=== PATIENT | male | born 1990 | race Two or more races ===

== ENCOUNTER 2025-10-30 03:51 | Emergency (ER) | payer MEDICAID, SELFPAY ==
[2025-10-30 03:51] VITALS: BP 124/83; PULSE 109; RESP 17; TEMP 36.7; O2SAT 95
[2025-10-30 03:52] VITALS: BMI 27.3
--- NOTE | 2025-10-30 04:26 | EDNOTE_ITS ---
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 Separately, patient has also had some non-healing painful wounds on lower ab area. Patient denies new meds, foods, and hygiene products. Limitations: no limitations Related Data Previous Rx's ?Medication ?Instructions ?Recorded acetaminophen 650 mg 650 mg PO Q8H PRN fever or p ain 03/15/22 tablet,extended release #30 tabs ibuprofen 600 mg tablet 600 mg PO Q8H PRN fever or p ain 03/15/22 #30 tabs doxycycline hyclate 100 mg tablet 100 mg PO BID 7 days #14 tabs 10/30/25 prednisone 50 mg tablet 50 mg PO QDAY 3 days #3 tabs 10/30/25 Allergies Allergy/AdvReac Type Severity Reaction Status Date / Time No Known Allergies Allergy Verified 10/30/25 03:51 Review of Systems Review of Systems Systems Reviewed: All systems reviewed, normal except as documented Integumentary/Breasts Skin/Breast: Reports as per HPI, Reports pruritus, Reports rash and Reports skin pain Past Medical History Past Medical History CARDIAC: Negative Congestive Heart Failure RESPIRATORY: Negative Chronic Obstructive Pulmonary Disease (COPD) GENITOURINARY: Negative Renal Disease ENDOCRINE: Negative Diabetes Mellitus Type 1 or Diabetes Mellitus Type 2 Social History SMOKING STATUS: Current every day smoker ED Exam General Limitations: Present no limitations General appearance: Present alert and in no apparent distress Head Head exam: Present other (urticarial rash face and neck) Neck Neck exam: Present normal inspection, full ROM and trachea midline Chest Chest inspection: Present normal inspection and symmetric chest wall rise Abdominal Exam Abdominal exam: Present other (mild red healed ulcerations on lower ab) Neurological Exam Neurological exam: Present alert and oriented X3 Psychiatric Psychiatric exam: Present normal affect and normal mood Skin Skin exam: Present warm, dry, intact and normal color Course Quality Measures none Orders Category Date Time Status DiphenhydrAMINE [Benadryl] Med 10/30/25 04:14 Discontinued 25 mg PO X1 ONE Doxycycline [Vibramycin] Med 10/30/25 04:14 Discontinued 100 mg PO X1 ONE Famotidine [Pepcid] Med 10/30/25 04:14 Discontinued 20 mg PO X1 ONE MethylPREDNISolone.* [SoluMEDROL Inj] Med 10/30/25 04:14 Discontinued 125 mg IM X1 ONE Vital Signs Vital signs: Vital Signs Temperature 98.0 F 10/30/25 03:51 Pulse Rate 109 H 10/30/25 03:51 Respiratory Rate 17 10/30/25 03:51 Blood Pressure 124/83 10/30/25 03:51 Pulse Oximetry (%) 95 10/30/25 03:51 Oxygen Delivery Method Room Air 10/30/25 03:51 O2 at 95% on RA and WNLs Allergic Reaction MDM Narrative MDM Narrative:: 35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 Separately, patient has also had some non-healing painful wounds on lower ab area. Patient denies new meds, foods, and hygiene products. Physical exam reveals urticarial rash on face and neck with some swelling. Normal WOB and speech. Separately, soome redness around healed ulcerations on lower ab. Patient is afebrile, calm, and alert. Patient eloped prior to observation period and DC. Patient data External records reviewed:: [facility] previous records Clinical information provided by:: patient Social determinants that could affect healthcare access:: substance use Patient has the following chronic illnesses:: meth How is presenting disease/condition affected by chronic disease/condition?: exacerbated by Evaluation data The following diagnostics were reviewed and interpreted by me:: other (specify) (none) Lab and/or radiology exams considered but not ordered:: not ordered Interpretation Summary: n/a Medications / Prescriptions Medications or Prescriptions considered but not ordered:: ordered Medication administrations:: Medication Administration History Discontinued Medications Diphenhydramine HCl (Diphenhydramine 25 Mg Capsule) 25 mg PO X1 ONE Stop: 10/30/25 04:15 Last Admin: 10/30/25 04:55 Dose: 25 mg Documented By: CVL Doxycycline Hyclate (Doxycycline 100 Mg Tablet) 100 mg PO X1 ONE Stop: 10/30/25 04:15 Last Admin: 10/30/25 04:55 Dose: 100 mg Documented By: CVL Famotidine (Famotidine 20 Mg Tablet) 20 mg PO X1 ONE Stop: 10/30/25 04:15 Last Admin: 10/30/25 04:55 Dose: 20 mg Documented By: CVL Methylprednisolone Sodium Succinate (Methylprednisolone Sod Succ 62.5 Mg/Ml 2ml Vial) 125 mg IM X1 ONE Stop: 10/30/25 04:15 Last Admin: 10/30/25 04:57 Dose: 125 mg Documented By: JACKL above Consultations Consultation(s) initiated? (list below): No Diagnosis Differential Diagnosis allergic reaction: anaphylaxis, allergic reaction, angioedema, contact dermatitis, adverse reaction to drug, viral enanthem and urticaria Most likely diagnosis given after review of the tests above:: allergic reaction and cellulitis Admission Indicated Admission indicated?: not indicated Admission Request Was there a request for admission?: No Disposition Plan Disposition Plan: other (specify) (eloped) Discharge Plan Plan Patient Disposition: Elopement Discharge Disposition comment: Stable Prescriptions/Referrals Prescriptions/Med Rec: New prednisone 50 mg tablet 50 mg PO QDAY 3 Days Qty: 3 0RF doxycycline hyclate 100 mg tablet 100 mg PO BID 7 Days Qty: 14 0RF No Action acetaminophen 650 mg tablet extended release 650 mg PO Q8H PRN (Reason: fever or pain) Qty: 30 0RF Rx Instructions: swallow whole; do not chew/break/dissolve/open ibuprofen 600 mg tablet 600 mg PO Q8H PRN (Reason: fever or pain) Qty: 30 0RF Problem List Clinical Impression: Cellulitis, Allergic reaction Patient/Caregiver Discharge Instructions Education Materials: ED Hives (Adult) Additional Instructions: Please follow-up with PCP within 24-48 hours and return immediately if symptoms worsen. Take OTC antihistamine as needed until symptoms resolve. Finish entire steroid course. Print Language: American Stand Alone Forms: Patient Portal Info Letter MAXIMILIANO/FELICIANO Supervising Physician MAXIMILIANO/FELICIANO Supervising Physician: Dr. Hernandes
[2025-10-30] MEDS: FAMOTIDINE 20 MG TABLET PO (04:55)
[2025-10-30] MEDS: DOXYCYCLINE 100 MG TABLET PO (04:55)
[2025-10-30] MEDS: MethylPREDNISolone SOD SUCC 62.5 MG/ML 2ML VIAL 125 MG IM (04:57)
== END 2025-10-30 05:15 | disposition left against medical advice (07) ==
LOC: SERX 07:25
PROVIDERS: Emergency Provider Emergency Medicine; PCP Nurse Practitioner Primary Care
DX: L03.90 Cellulitis, unspecified (principal); L50.0 Allergic urticaria; Z53.21 Procedure and treatment not carried out due to patient leaving prior to being seen by health care provider
CPT/HCPCS: 96372; 99282; J2919; A9270